=== PATIENT | female | born 2000 | race American Indian/Alaskan Native ===

== ENCOUNTER 2022-05-24 13:27 | Outpatient (CLI) | payer OTHER ==
[2022-05-24 13:55] VITALS: BP 120/65
[2022-05-24] MEDS ORDERED: LACTATED RINGERS 500 ML IV ONE (14:16)
[2022-05-24 17:44] LABS: Mucus,Urine FEW /HPF
[2022-05-24 17:57] LABS: Bilirubin,Urine Negative (Negative); Blood,Urine Negative (Negative); Color,Urine Yellow (Yellow)
== END 2022-05-24 16:55 | disposition home or self-care (01) ==
LOC: APU 13:27 → TRG 13:27
PROVIDERS: ATTEND Obstetrics & Gynecology
DX: O26.892 Other specified pregnancy related conditions, second trimester (principal); R10.9 Unspecified abdominal pain; Z3A.21 21 weeks gestation of pregnancy
CPT/HCPCS: 59025; 81001